=== PATIENT | male | born 1990 | race Caucasian/White ===

== ENCOUNTER 2018-03-23 10:58 | Emergency (ER) | payer SELFPAY ==
[2018-03-23] MEDS ORDERED: IBUPROFEN 800 MG TABLET PO ONE (11:16)
--- NOTE | 2018-03-23 11:20 | ER Document Report ---
ED Extremity Problem, Lower - General Chief Complaint: Knee Pain Stated Complaint: KNEE PAIN Time Seen by Provider: 03/23/18 11:16 Mode of Arrival: Ambulatory Information source: Patient Notes: 27-year-old presents to ED for complaint of right knee pain. He states about 3 days ago just started hurting and now it hurts every time he gets up and moves. It is swollen painful to the touch. Patient is alert and oriented pupils equal and react to light speaking in full sentences respirations regular and unlabored and he is able to ambulate with a steady gait. TRAVEL OUTSIDE OF THE [place] IN LAST 30 DAYS: No - HPI Location: Knee - Right Occurred: Other - 3 days Where: Home Onset/Duration: Gradual Quality of pain: Achy, Pressure Severity: Severe Pain Level: 5 Recent injury: No Associated symptoms: Painful ambulation Exacerbated by: Hanging down, Movement, Walking Relieved by: Nothing - Related Data Allergies/Adverse Reactions: No Known Allergies Allergy (Verified 03/23/18 10:59) Past Medical History - General Information source: Patient - Social History Smoking Status: Current Every Day Smoker Cigarette use (# per day): Yes - 1/2-1 pack per day Smoking Education Provided: Yes - 4 minutes Frequency of alcohol use: None Drug Abuse: None 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 Lives with: Spouse/Significant other Family History: Reviewed & Not Pertinent Patient has suicidal ideation: No Patient has homicidal ideation: No - Past Medical History Cardiac Medical History: Reports: None Pulmonary Medical History: Reports: None EENT Medical History: Reports: None Neurological Medical History: Reports: None Endocrine Medical History: Reports: None Renal/ Medical History: Reports: None Malignancy Medical History: Reports None GI Medical History: Reports: Other - Inguinal hernia Musculoskeltal Medical History: Reports Hx Musculoskeletal Trauma Skin Medical History: Reports None Psychiatric Medical History: Reports: None Traumatic Medical History: Reports: Hx Fractures - Wrist and right leg Infectious Medical History: Reports: None Past Surgical History: Reports: Hx Inguinal Hernia - Left, Hx Myringotomy - Immunizations Immunizations up to date: Yes Hx Diphtheria, Pertussis, Tetanus Vaccination: Yes Review of Systems - Review of Systems Constitutional: No symptoms reported EENT: No symptoms reported Cardiovascular: No symptoms reported Respiratory: No symptoms reported Gastrointestinal: No symptoms reported Genitourinary: No symptoms reported Male Genitourinary: No symptoms reported Musculoskeletal: Joint pain, Joint swelling Skin: No symptoms reported Hematologic/Lymphatic: No symptoms reported Neurological/Psychological: No symptoms reported -: Yes All other systems reviewed and negative Physical Exam - Vital signs Vitals: Temp Pulse Resp BP Pulse Ox 98.2 F 96 16 120/81 95 03/23/18 11:05 03/23/18 11:05 03/23/18 11:05 03/23/18 11:05 03/23/18 11:05 Interpretation: Normal - General General appearance: Appears well, Alert - HEENT Head: Normocephalic, Atraumatic Eyes: Normal Pupils: PERRL - Respiratory Respiratory status: No respiratory distress Chest status: Nontender Breath sounds: Normal Chest palpation: Normal - Cardiovascular Rhythm: Regular Heart sounds: Normal auscultation Murmur: No - Abdominal Inspection: Normal Distension: No distension Bowel sounds: Normal Tenderness: Nontender Organomegaly: No organomegaly - Back Back: Normal, Nontender - Extremities General upper extremity: Normal inspection, Nontender, Normal color, Normal ROM , Normal temperature General lower extremity: Normal color, Normal temperature, Normal weight bearing. No: Monika's sign Knee: Tender, Joint effusion, Pain with ROM, Patellar tendon intact, Tender joint line - Neurological Neuro grossly intact: Yes Cognition: Normal Orientation: AAOx4 Anika Coma Scale Eye Opening: Spontaneous Anika Coma Scale Verbal: Oriented [place] Coma Scale Motor: Obeys Commands [place] Coma Scale Total: 15 Speech: Normal Motor strength normal: LUE, RUE, LLE, RLE Sensory: Normal - Psychological Associated symptoms: Normal affect, Normal mood - Skin Skin Temperature: Warm Skin Moisture: Dry Skin Color: Normal Course - Re-evaluation Re-evalutation: 03/23/18 12:25 Dictated given to patient and discussed with patient. Patient has a knee effusion. He will need to follow-up with orthopedics for this knee. Patient was treated with ibuprofen in the Joaquin wrap given instructions for elevation and night. - Vital Signs Vital signs: Temp Pulse Resp BP Pulse Ox 98.2 F 96 16 120/81 95 03/23/18 11:05 03/23/18 11:05 03/23/18 11:05 03/23/18 11:05 03/23/18 11:05 - Diagnostic Test Radiology reviewed: Image reviewed, Reports reviewed Procedures - Immobilization Right Knee Time completed: 12:25 Immobilizer type: Joaquin wrap Performed by: PCT Post-Proc Neuro Vasc Exam: Normal Alignment checked and good: Yes Discharge - Discharge Clinical Impression: Effusion, right knee Condition: Stable Disposition: HOME, SELF-CARE Additional Instructions: Knee Effusion You have a fluid collection in the knee joint, called an effusion. This fluid build up can occur from irritation of the synovial membrane lining the knee joint or from a more serious injury to the knee. Irritation of the membrane can occur from excessive, repetitive knee activitiy, like kneeling or squatting for extended periods or even just excessive walking, jogging, or skiing. Effusions also can occur with infections in the joint and with some arthritic conditions, especially gout. Fluid collections in these situations are usually yellow in color and either clear or cloudy in appearance. Significant injury to the knee can result in fluid collection which is partly or entirely blood and this condition is known as a hemarthrosis of the knee joint. If the fluid collection is not too large and/or painful, it can be managed conservatively with rest, ice packs, and anti-inflammatory and pain medications as needed. If the fluid collection is large and very painful, the knee joint can be drained (aspirated) by a relatively minor procedure of inserting a needle in the joint and removing some or all of the fluid present. If your knee was aspirated, you should rest it as much as possible for a few days, keep a pressure dressing around the knee and apply ice packs for at least 48 - 72 hours. If there are signs of developing infection such as heat and redness of the knee, fever, etc. you should return immediately for a recheck. JOAQUIN WRAP: A compression dressing (joaquin wrap) has been placed. This helps hold the area still. It limits swelling and internal bleeding. The wrap should be comfortably snug -- not tight. You should feel a sense of pressure, but not severe pain under the wrap. Unless the physician tells you otherwise, you can adjust the wrap for comfort. If the wrap causes symptoms suggesting it's too tight -- uncomfortable pressure, swelling or discoloration beyond the wrap, numbness, or severe pain - - you must loosen the wrap. If these symptoms don't resolve promptly, return for re-evaluation. ICE & ELEVATION: Apply ice packs frequently against the painful area. Many different schedules are recommended, such as "20 minutes on, 20 minutes off" or "one hour ice, two hours rest." If you need to work, you may need to go longer between ice treatments. You should plan to have the area ice packed AT LEAST one- fourth of the time. The ice should be applied over the wrap, tape, or splint, or over a layer of cloth -- not directly against the skin. Some ice bags have a built-in cloth and can be put directly on the skin. Your injured part should be elevated as much as possible over the next 48 hours. Try to keep the injury above the level of the heart. Avoid use of the injured area. Elevation and rest will decrease the swelling. USE OF [id number] IBUPROFEN: Ibuprofen (Advil, Nuprin, Medipren, Motrin IB) is a medication for fever and pain control. In addition, it has anti- inflammatory effects which may be beneficial, especially in the treatment of injuries. It's best to take ibuprofen with food. Persons with ulcer disease or allergy to aspirin should notify their physician of this before taking ibuprofen. Ibuprofen can be given every four to six hours, for a total of four doses daily. Age Pain or fever dose Antiinflammatory dose 6-8 yr 200 mg (1 tab) 200 mg (1 tab) 9-11 yr 200 mg (1 tab) 200-400 mg (1-2 tab) 11-14 yr 200-400 mg (1-2 tab) 400 mg (2 tab) 15-adult 400 mg (2 tab) 600 mg (3 tab) FOLLOW-UP CARE: If you have been referred to a physician for follow-up care, call the physician s office for an appointment as you were instructed or within the next two days. If you experience worsening or a significant change in your symptoms, notify the physician immediately or return to the Emergency Department at any time for re-evaluation. Prescriptions: Ibuprofen 800 mg PO Q8HP PRN #20 tablet PRN Reason: Forms: Smoking Cessation Education, Return to Work Referrals: NELLY FONTANEZ MD [ACTIVE STAFF] - Follow up as needed
--- NOTE | 2018-03-23 12:07 | RADIOLOGY REPORT (SQ) ---
EXAM DESCRIPTION: KNEE RIGHT 4 VIEWS COMPLETED DATE/TIME: 03/23/2018 11:53 am REASON FOR STUDY: pain and swelling COMPARISON: None. NUMBER OF VIEWS: Four views. TECHNIQUE: AP, lateral, and both oblique radiographic images acquired of the right knee. LIMITATIONS: None. FINDINGS: MINERALIZATION: Normal. BONES: No acute fracture or dislocation. No worrisome bone lesions. JOINT: No effusion. SOFT TISSUES: Extensive prepatellar soft tissue swelling. No radio-opaque foreign body. OTHER: No other significant finding. IMPRESSION: Extensive prepatellar soft tissue swelling. No soft tissue gas or radiopaque foreign sabra dy. No fracture or malalignment. No significant suprapatellar knee joint effusion. TECHNICAL DOCUMENTATION: JOB ID: [id number] [employer]- All Rights Reserved Reading location - IP/workstation name: [email or web address]
[2018-03-23 12:28] VITALS: BP 109/64
== END 2018-03-23 12:27 | disposition home or self-care (01) ==
LOC: ER 10:58
DX: M25.561 Pain in right knee (principal); M25.461 Effusion, right knee; F17.210 Nicotine dependence, cigarettes, uncomplicated
CPT/HCPCS: 99283

== ENCOUNTER 2019-03-28 22:14 | Emergency (ER) | payer SELFPAY ==
[2019-03-28 23:04] VITALS: BP 122/71
== END 2019-03-28 23:57 | disposition left against medical advice (07) ==
LOC: ER 22:14
DX: Z53.21 Procedure and treatment not carried out due to patient leaving prior to being seen by health care provider (principal)